=== PATIENT | female | born 1955 | race African-American/Black ===

== ENCOUNTER 2016-06-05 14:07 | Emergency (ER) | payer MEDICAID ==
[2016-06-05] MEDS ORDERED: KETOROLAC 60 MG/2 ML VIAL IM ONE (16:15)
[2016-06-05] MEDS ORDERED: ONDANSETRON ODT 4 MG TAB ONE (16:15)
[2016-06-05] MEDS ORDERED: DILAUDID 1 MG/ML AMP ONE (16:15)
[2016-06-05] MEDS ORDERED: CYCLOBENZAPRINE 10 MG TAB ONE (16:15)
== END 2016-06-05 17:44 | disposition home or self-care (01) ==
LOC: ER 14:07
CPT/HCPCS: 71020; 72050; 72100; 96372